=== PATIENT | female | born 1945 | race Caucasian/White ===

== ENCOUNTER 2019-09-13 10:29 | Emergency (ER) | payer BC, OTHER ==
--- OUTSIDE RECORDS SUMMARY | 2019-09-13 10:31 | XMS REPORT | Summary of Care ---
:1945 Author Organization [facility] - Health Address [address] [place] [id number] Care Team Providers Name Role Phone Sae Markham DO [employer] Worker Aneudy Seth Primary Care Provider Encounter Details Date Type Department Care Team Description 04/01/2019 Orders Only [facility] Doctor Unassigned, No 301 [facility] Name [place] [id number] [address] [place] [address] Allergies Active Allergy Reactions Severity Noted Date Comments Codeine Nausea and/or Vomiting 01/08/2019 Meperidine Hcl Nausea and/or Vomiting 01/08/2019 Sulfa (Sulfonamide Unknown - See comments 01/08/2019 Antibiotics) Pentazocine-Naloxone Other - See comments 02/03/2019 N/V, dizziness Tramadol Nausea and/or Vomiting 01/08/2019 documented as of this encounter (statuses as of 04/10/2019) Medications Medication Sig Dispensed Refills Start Date End Date Status citalopram 20 mg tablet 0 01/01/2019 Active losartan-hydrochlorothia Take 1 tablet by 0 Active zide 100-25 mg per mouth daily. tablet atorvastatin 80 mg Take 80 mg by 0 Active tablet mouth at bedtime. ANASTROZOLE Take 1 mg by 0 02/01/2011 Active ORALIndications: hx mouth daily. breast cancwe metoprolol succinate XL Take 25 mg by 0 Active 25 mg 24 hr tablet mouth daily. Levothyroxine 75 mcg Take by mouth. 0 Active capsule omeprazole 40 mg capsule Take 40 mg by 0 Active mouth daily. aspirin 81 mg chewable Take 81 mg by 0 Active tabletIndications: mouth daily. stents in heart pentazocine-naloxone Take 1 tablet by 40 tablet 1 01/21/2019 Active 50-0.5 mg mouth every 4 tabletIndications: (four) hours as Status post total right needed for Pain. knee replacement documented as of this encounter (statuses as of 04/10/2019) Active Problems Problem Noted Date Total knee replacement status 01/20/2019 History of arthritis 01/15/2019 Overview: Added automatically from request for surgery [id number] documented as of this encounter (statuses as of 04/10/2019) Social History Tobacco Use Types Packs/Day Years Used Date Former Smoker Smokeless Tobacco: Never Used Comments: quit 43 years ago Alcohol Use Drinks/Week oz/Week Comments Yes social Sex Assigned at Date Recorded Not on file Job Start Date Occupation Industry Not on file Not on file Not on file Travel History Travel Start Travel End No recent travel history available. documented as of this encounter Last Filed Vital Signs Not on filedocumented in this encounter Plan of Treatment Health Maintenance Due Date Last Done Comments HEPATITIS C (HCV) SCREEN 1945 DTaP,Tdap,and Td Vaccines (1 - Tdap) 1965 MAMMOGRAM 1986 COLONOSCOPY 1996 Zoster Recombinant Vaccine (SHINGRIX) (1 of 2) 1996 LUNG CANCER SCREEN: Recommended for age 55-80 with 30 + 2001 pack year history Medicare Wellness Visit 2011 Osteoporosis Screening 2011 PNEUMOCOCCAL VACCINES 65+ (1 of 2 - PCV13) 2011 INFLUENZA VACCINE 05/04/2019 documented as of this encounter Implants Implanted Type Area Lamp Assembler Device Shelf Model / Identifier Expiration Serial / Lot Date Bone Cement Injector 1x40 High Viscosity Sridhar Ref#[id number] - Sn/A CEMENT Right: Biomet 09/02/2022 [id number] / Implanted: Qty: 1 on 01/20/2019 by Bjorn Hunter MD at [facility] Knee N/A / [id number] Primary Tibial Modular Tray KNEE Right: [employer] 02/27/2021 [id number] / Implanted: Qty: 1 on 01/20/2019 by Bjorn Hunter MD at [facility] Knee N/A / [id number] Bearing Tibial 10 X 63/67 Mm #[id number] - Sn/A Knee Insert Right: [employer] 10/2022 [id number] / Implanted: Qty: 1 on 01/20/2019 by Bjorn Hunter MD at [facility] Knee N/A / [id number] Porous Plasma/Greer Coated -Cf Femoral-Right Knee Insert Right: [employer] [id number] / Implanted: Qty: 1 on 01/20/2019 by Bjorn Hunter MD at [facility] Knee N/A / [id number] Adc Patella 28 X 8 Mm - Sn/A PATELLA Right: [employer] 11/28/2023 [id number] / Implanted: Qty: 1 on 01/20/2019 by Bjorn Hunter MD at [facility] Knee N/A / [id number] Screw Bone 6.5x30mm Lp St [employer] #[id number] - Sn/A SCREW Right: [employer] 10/16 [id number] / Implanted: Qty: 1 on 01/20/2019 by Bjorn Hunter MD at [facility] Knee N/A / [id number] Screw Bone 6.5x30mm Lp St [employer] #[id number] - Sn/A SCREW Right: [employer] 10/16 [id number] / Implanted: Qty: 1 on 01/20/2019 by Bjorn Hunter MD at [facility] Knee N/A / [id number] Screw Bone 6.5x30mm Lp St [employer] #[id number] - Sn/A SCREW Right: [employer] 10/16 [id number] / Implanted: Qty: 1 on 01/20/2019 by Bjorn Hunter MD at [facility] Knee N/A / [id number] Screw Bone 6.5x30mm Lp St [employer] #[id number] - Sn/A SCREW Right: [employer] 10/16 [id number] / Implanted: Qty: 1 on 01/20/2019 by Bjorn Hunter MD at [facility] Knee N/A / [id number] Stem Finned Primary 40mm Biomet #[id number] - Sn/A Stem Right: Biomet 2028 [id number] / Implanted: Qty: 1 on 01/20/2019 by Bjorn Hunter MD at [facility] Knee N/A / [id number] documented as of this encounter Procedures Procedure Name Priority Date/Time Associated Diagnosis Comments REFERRAL- Routine 04/01/2019 12:01 AM CDT REQUEST/RESPONSE documented in this encounter Results Not on filedocumented in this encounter Insurance Payer Benefit Plan / Subscriber ID Effective Dates Phone Address Type Group HUMANA - HUMANA [id number] 2019-Presen Medicare Adv MANAGED MEDICARE t FFS MEDICARE documented as of this encounter
--- OUTSIDE RECORDS SUMMARY | 2019-09-13 10:31 | XMS REPORT ---
:1945 [facility] Address [address] [place] [address] Dr. Butt [address] [place] [id number] Care Team Providers Name Role Phone Unavailable Unavailable Unavailable Problems This patient has no known problems. Allergies, Adverse Reactions, Alerts This patient has no known allergies or adverse reactions. Medications This patient has no known medications.
[2019-09-13 11:00] LABS: Absolute Lymphocytes (CBC) 1.3 K/uL (0.7-4.9); Basophils % 0.7 % (0-1.3); Hematocrit 37.4 % (36.0-45.0); Lymphocytes % 12.9 % (15.3-44.8); MPV 8.6 fL (7.6-11.3); RBC Red Blood Cell Count 4.03 M/uL (3.86-4.86)
[2019-09-13 11:01] LABS: Protime INR 1.11
[2019-09-13 11:18] LABS: ALT/SGPT 17 U/L (12-78); AST/SGOT 9 U/L (15-37); Albumin 3.2 g/dL (3.4-5.0); Alkaline Phosphatase 102 U/L (45-117); BUN Blood Urea Nitrogen 15 mg/dL (7-18); Bicarbonate 28 mmol/L (21-32); Bilirubin Direct 0.2 mg/dL (0-0.2); Glucose Level 123 mg/dL (74-106); Lipase 107 U/L (73-393); Potassium 3.5 mmol/L (3.5-5.1); Sodium Level 140 mmol/L (136-145); Troponin (Emerg Dept Use Only) < 0.02 ng/mL (0.0-0.045)
[2019-09-13 11:34] LABS: Urine Blood NEGATIVE (NEG); Urine Glucose NEGATIVE (NEG); Urine Protein 1+ (NEG); Urine Specific Gravity 1.025 (1.005-1.030)
--- NOTE | 2019-09-13 12:45 | RAD REPORT ---
EXAM DESCRIPTION: CT - Stone Protocol - 09/13/2019 12:23 pm CLINICAL HISTORY: Abdominal pain, left upper quadrant and epigastric pain COMPARISON: None. TECHNIQUE: Axial 5 mm thick images were obtained without oral or IV contrast. The [id number] span s the entirety of the system including uppermost abdomen and lung bases. All CT scans are performed using dose optimization technique as appropriate and may include automated exposure control or mA/KV adjustment according to patient size. FINDINGS: Minimal left pleural effusion is present. There is minimal atelectasis change in the left base. No definitive infiltrate. No pericardial thickening or effusion. No hydronephrosis is present and no obstructing ureteral calculi. A 6 mm nonobstructing calculus pres ent in the posterior mid right kidney. No suspicious renal masses. Isodense masses and pyelonephritis are not excluded on a stone protocol CT scan. No urinary bladder suspicious finding. No significant adrenal finding. Uterus is absent. Pelvic floor laxity is present. No ovarian abnormality. Imaged portions of the liver, spleen and pancreas show no suspicious findings on non-contrast imaging . No gallbladder or biliary tree abnormality identified. No suspicious bowel findings. Small fat only umbilical hernia is present. No mass or bulky lymphadenopathy. No free air, free fluid or inflammatory stranding. No acute bone finding. IMPRESSION: Minimal left pleural effusion and stranding atelectasis in the left base. No definitive infiltrate. No acute finding in the abdomen and pelvis. Nonacute findings detailed in the body of the report. Isodense masses and pyelonephritis are not excluded on stone protocol technique.
--- NOTE | 2019-09-13 12:48 | RAD REPORT ---
EXAM DESCRIPTION: US - Abdomen Exam Limited - 09/13/2019 11:54 am CLINICAL HISTORY: EPIGASTRIC PAIN COMPARISON: No comparisons FINDINGS: No gallstones, sludge or other abnormalities within the gallbladder lumen. There is no wal l thickening or pericholecystic fluid. No common duct stone or biliary tree dilatation identified. IMPRESSION: Normal gallbladder and biliary tree ultrasound.
--- NOTE | 2019-09-13 13:49 | RAD REPORT ---
EXAM DESCRIPTION: RAD - Chest Single View - 09/13/2019 1:27 pm CLINICAL HISTORY: Lower chest pain, upper abdominal pain COMPARISON: November 2014 TECHNIQUE: AP portable chest image was obtained 1321 hours . FINDINGS: No focal lung parenchymal process. Interstitial markings are similar to comparison. Heart and vasculature are normal. No measurable pleural effusion and no pneumothorax. No acute bony abnorma lity seen. No acute aortic findings suspected. IMPRESSION: No acute cardiopulmonary process.
--- NOTE | 2019-09-13 15:15 | ER ---
Nurse's Notes [facility] Name: Clarice Castellano Age: 74 yrs Sex: Female : 1945 Arrival Date: 09/13/2019 Time: 10:31 Bed 6 Private MD: Aneudy Seth Diagnosis: Acute upper respiratory infection, unspecified;Urinary tract infection, site not specified Presentation: 09/13 10:40 Presenting complaint: Patient states: LUQ and epigastric pain that radiates towards ss back that began at lunch time yesterday. Pt states that she took a SL Nitro prior to arrival and states it did not change her symptoms. Transition of care: patient was not received from another setting of care. Onset of symptoms was September 12, 2019. Risk Assessment: Do you want to hurt yourself or someone else? Patient reports no desire to harm self or others. Initial Sepsis Screen: Does the patient meet any 2 criteria? No. Patient's initial sepsis screen is negative. Does the patient have a suspected source of infection? No. Patient's initial sepsis screen is negative. Care prior to arrival: None. 10:40 Method Of Arrival: Ambulatory ss 10:40 Acuity: CARL 3 ss Historical: - Allergies: 10:43 Sulfa (Sulfonamide Antibiotics); ss 10:43 Codeine; ss 10:43 tramadol; ss 10:43 Demerol; ss - Home Meds: 11:19 losartan-hydrochlorothiazide 100-25 mg oral tab 1 tab once daily [Active]; citalopram aj1 40 mg tab 1 tab once daily [Active]; atorvastatin 80 mg oral tab 1 tab once daily [Active]; anastrozole 1 mg oral tab 1 tab once daily [Active]; aspirin 81 mg Oral chew 1 tab once daily [Active]; Vitamin D3 5,000 unit oral tab [Active]; Calcium Citrate Oral [Active]; metoprolol tartrate 25 mg Oral tab [Active]; levothyroxine 75 mcg tab 1 tab once daily [Active]; simvastatin 20 mg Oral tab 1 tab once daily [Active]; Vitamin C 1,000 mg Oral tab [Active]; vitamin E 400 unit Oral cap [Active]; omeprazole 40 mg Oral cpDR 1 cap once daily [Active]; multivitamin oral cap daily [Active]; - PMHx: 10:47 High Cholesterol; Hypertension; ss - PSHx: 10:47 Knee surgery; cardiac stent; ss - Immunization history:: Adult Immunizations up to date. - Social history:: Smoking status: Patient/guardian denies using tobacco. - Ebola Screening: : Patient denies exposure to infectious person Patient denies travel to an Ebola-affected area in the 21 days before illness onset. Screenin:45 Abuse screen: Denies threats or abuse. Nutritional screening: No deficits noted. tw2 Tuberculosis screening: No symptoms or risk factors identified. Fall Risk Secondary diagnosis (15 points) impaired mobility. Assessment: 11:33 General: Appears in no apparent distress. comfortable, Behavior is calm, cooperative, aj1 appropriate for age. Pain: Complains of pain in epigastric area Pain radiates to back and chest Quality of pain is described as aching, Patient reports that her pain is tolerable at this time as long as she doesn't take too deep of a breath. Neuro: Level of Consciousness is awake, alert, obeys commands, Oriented to person, place, time, situation. Cardiovascular: Heart tones S1 S2 present Patient's skin is warm and dry. Respiratory: Airway is patent Respiratory effort is even, unlabored, Respiratory pattern is regular, symmetrical, Breath sounds are clear bilaterally. GI: Abdomen is distended, Bowel sounds present X 4 quads. Abd is soft X 4 quads Abdomen is tender to palpation in right upper quadrant. : No signs and/or symptoms were reported regarding the genitourinary system. EENT: No signs and/or symptoms were reported regarding the EENT system. Derm: No signs and/or symptoms reported regarding the dermatologic system. Skin is pink, warm \T\ dry. normal. Musculoskeletal: No signs and/or symptoms reported regarding the musculoskeletal system. Circulation, motion, and sensation intact. 11:36 Reassessment: Ultrasound at bedside. aj1 12:35 Reassessment: Patient appears in no apparent distress at this time. Patient and/or tw2 family updated on plan of care and expected duration. Pain level reassessed. Patient is alert, oriented x 3, equal unlabored respirations, skin warm/dry/pink. 13:35 Reassessment: Patient appears in no apparent distress at this time. Patient and/or tw2 family updated on plan of care and expected duration. Pain level reassessed. Patient is alert, oriented x 3, equal unlabored respirations, skin warm/dry/pink. 14:01 Reassessment: provider at bedside at this time. tw2 15:22 Reassessment: Patient appears in no apparent distress at this time. Patient and/or tw2 family updated on plan of care and expected duration. Pain level reassessed. Patient is alert, oriented x 3, equal unlabored respirations, skin warm/dry/pink. Vital Signs: 10:40 BP 102 / 65; Pulse 68; Resp 16; Temp 99.2(TE); Pulse Ox 96% on R/A; Weight 81.19 kg; ss Height 5 ft. 2 in. (157.48 cm); Pain 5/10; 11:34 BP 98 / 55; Pulse 57; Resp 17; Pulse Ox 93% on R/A; tw2 12:35 BP 104 / 52; Pulse 65; Resp 17; Pulse Ox 93% on R/A; tw2 13:35 BP 103 / 53; Pulse 62; Resp 17; Pulse Ox 97% on R/A; tw2 14:37 BP 99 / 55; Pulse 62; Resp 17; Pulse Ox 95% on R/A; tw2 15:22 BP 118 / 66; Pulse 68; Resp 17; Pulse Ox 95% on R/A; tw2 10:40 Body Mass Index 32.74 (81.19 kg, 157.48 cm) ED Course: 10:31 Patient arrived in ED. as 10:31 Aneudy Seth MD is Private Physician. as 10:32 [facility] Jose [facility] 10:32 Mark Reich MD is Attending Physician. [facility] 10:32 Bed in low position. Call light in reach. monitoring tech on. Pulse ox on. NIBP on. tw2 10:40 Arm band placed on right wrist. ss 10:40 Inserted saline lock: 20 gauge in left antecubital area, using aseptic technique. Blood sv collected. Flushed left antecubital with 5 ml normal saline. 10:41 Mattie Lobato, LAI is Primary Nurse. sv 10:42 Triage completed. ss 10:57 Report given to Nae HOYT. sv 11:33 No provider procedures requiring assistance completed. aj1 11:54 Ultrasound completed. Patient tolerated well. sg3 11:54 US Abdomen Limited In Process Unspecified. EDMS 12:16 Nae Zavala, RN is Primary Nurse. aj1 12:23 CT Stone Protocol In Process Unspecified. EDMS 13:28 Chest Single View XRAY In Process Unspecified. EDMS 15:14 Aneudy Seth MD is Referral Physician. m 15:21 IV discontinued, intact, bleeding controlled, No redness/swelling at site. Pressure tw2 dressing applied. Administered Medications: No medications were administered Outcome: 15:14 Discharge ordered by . jmm 15:21 Discharged to home ambulatory, with family. tw2 15:21 Condition: stable 15:21 Discharge instructions given to patient, family, Instructed on medication usage, Demonstrated understanding of instructions, follow-up care, medications, Prescriptions given X 1. 15:22 Patient left the ED. tw2 Signatures: Dispatcher [employer] EDMS Nae Zavala, RN RN aj1 Mattie Lobato RN RN Tommy Soto PA PA jmm Martinez, Amelia as Smirch, Shelby, RN RN ss Wise, Tara, RN RN tw2 Isamar Segovia 3
--- NOTE | 2019-09-13 15:16 | EDPHYS ---
Physician Documentation [facility] Name: Clarice Castellano Age: 74 yrs Sex: Female : 1945 Arrival Date: 09/13/2019 Time: 10:31 Bed 6 Private MD: Aneudy Seth ED Physician Mark Reich HPI: 09/13 10:35 This 74 yrs old Female presents to ER via Ambulatory with complaints of jmm Epigastric Pain, Back Pain, Flank Pain. 10:35 The patient presents with abdominal pain in the epigastric area. Onset: The jmm symptoms/episode began/occurred gradually, 1 day(s) ago. The symptoms radiate to right back, the left flank, chest. Associated signs and symptoms: Pertinent negatives: diarrhea, vomiting. The symptoms are described as achy. Modifying factors: The symptoms are alleviated by nothing, the symptoms are aggravated by nothing. This is a 74 year old female with a history of hlp, CAD, HTN, that presents to the ED with complaints of epigastric pain which radiates to the left flank, back, chest. Denies vomiting diarrhea. Patient still has gallbladder. . Historical: - Allergies: 10:43 Sulfa (Sulfonamide Antibiotics); ss 10:43 Codeine; ss 10:43 tramadol; ss 10:43 Demerol; ss - Home Meds: 11:19 losartan-hydrochlorothiazide 100-25 mg oral tab 1 tab once daily [Active]; citalopram aj1 40 mg tab 1 tab once daily [Active]; atorvastatin 80 mg oral tab 1 tab once daily [Active]; anastrozole 1 mg oral tab 1 tab once daily [Active]; aspirin 81 mg Oral chew 1 tab once daily [Active]; Vitamin D3 5,000 unit oral tab [Active]; Calcium Citrate Oral [Active]; metoprolol tartrate 25 mg Oral tab [Active]; levothyroxine 75 mcg tab 1 tab once daily [Active]; simvastatin 20 mg Oral tab 1 tab once daily [Active]; Vitamin C 1,000 mg Oral tab [Active]; vitamin E 400 unit Oral cap [Active]; omeprazole 40 mg Oral cpDR 1 cap once daily [Active]; multivitamin oral cap daily [Active]; - PMHx: 10:47 High Cholesterol; Hypertension; ss - PSHx: 10:47 Knee surgery; cardiac stent; ss - Immunization history:: Adult Immunizations up to date. - Social history:: Smoking status: Patient/guardian denies using tobacco. - Ebola Screening: : Patient denies exposure to infectious person Patient denies travel to an Ebola-affected area in the 21 days before illness onset. ROS: 10:35 Constitutional: Negative for fever, chills, and weight loss. jmm 10:35 Respiratory: Negative for shortness of breath, cough, wheezing, and pleuritic chest pain. 10:35 Cardiovascular: Positive for chest pain. 10:35 Abdomen/GI: Positive for abdominal pain. 10:35 Back: Positive for radiated pain. 10:35 All other systems are negative. Exam: 10:35 Constitutional: This is a well developed, well nourished patient who is awake, alert, jmm and in no acute distress. Head/Face: atraumatic. Eyes: EOMI, no conjunctival erythema appreciated ENT: Moist Mucus Membranes Neck: Trachea midline, Supple Chest/axilla: Normal chest wall appearance and motion. Cardiovascular: Regular rate and rhythm. No edema appreciated Respiratory: Normal respirations, no respiratory distress appreciated 10:35 Back: Normal ROM Skin: General appearance color normal MS/ Extremity: Moves all extremities, no obvious deformities appreciated, no edema noted to the lower extremities Neuro: Awake and alert, normal gait Psych: Behavior is normal, Mood is normal, Patient is cooperative and pleasant 10:35 Abdomen/GI: Inspection: abdomen appears normal, Bowel sounds: normal, Palpation: soft, mild abdominal tenderness, in the right upper quadrant. Vital Signs: 10:40 BP 102 / 65; Pulse 68; Resp 16; Temp 99.2(TE); Pulse Ox 96% on R/A; Weight 81.19 kg; Height 5 ft. 2 in. (157.48 cm); Pain 5/10; 11:34 BP 98 / 55; Pulse 57; Resp 17; Pulse Ox 93% on R/A; tw2 12:35 BP 104 / 52; Pulse 65; Resp 17; Pulse Ox 93% on R/A; tw2 13:35 BP 103 / 53; Pulse 62; Resp 17; Pulse Ox 97% on R/A; tw2 14:37 BP 99 / 55; Pulse 62; Resp 17; Pulse Ox 95% on R/A; tw2 15:22 BP 118 / 66; Pulse 68; Resp 17; Pulse Ox 95% on R/A; tw2 10:40 Body Mass Index 32.74 (81.19 kg, 157.48 cm) ss MDM: 10:42 Patient medically screened. [facility] 15:12 Data reviewed: vital signs, nurses notes. Counseling: I had a detailed discussion with bryon the patient and/or guardian regarding: the historical points, exam findings, and any diagnostic results supporting the discharge/admit diagnosis, lab results, radiology results, the need for outpatient follow up, to return to the emergency department if symptoms worsen or persist or if there are any questions or concerns that arise at home. ED course: Patient states on deep inhalation she has discomfort in her left side with a cough. Symptoms appear consistent with an infectious process opposed to ACS of PE. Patient will be treated with ABX and otherwise given strict return precautions. Patient understood and agrees with the plan of care. . 09/13 10:35 Order name: Basic Metabolic Panel; Complete Time: 11:19 [facility] 09/13 10:35 Order name: CBC with Diff; Complete Time: 11:19 [facility] 09/13 10:35 Order name: Creatinine for Radiology; Complete Time: 11:32 [facility] 09/13 10:35 Order name: Hepatic Function; Complete Time: 11:19 [facility] 09/13 10:35 Order name: Lipase; Complete Time: 11:19 [facility] 09/13 10:35 Order name: Troponin (emerg Dept Use Only); Complete Time: 11:19 [facility] 09/13 10:35 Order name: IV Saline Lock; Complete Time: 11:22 [facility] 09/13 10:35 Order name: Labs collected and sent; Complete Time: 11:22 [facility] 09/13 10:45 Order name: PT-INR; Complete Time: 11:19 [facility] 09/13 10:45 Order name: US Abdomen Limited; Complete Time: 12:49 [facility] 09/13 11:05 Order name: Urine Dipstick--Ancillary (enter results); Complete Time: 11:38 sc 09/13 12:01 Order name: CT Stone Protocol; Complete Time: 12:49 [facility] 09/13 12:54 Order name: Chest Single View XRAY; Complete Time: 13:51 [facility] 09/13 14:06 Order name: Troponin (emerg Dept Use Only): draw at 1430; Complete Time: 15:12 [facility] 09/13 10:35 Order name: EKG - Nurse/Tech; Complete Time: 10:41 [facility] 09/13 10:35 Order name: Urine Dipstick-Ancillary (obtain specimen); Complete Time: 11:22 [facility] Administered Medications: No medications were administered Disposition: 15:35 Co-signature as Attending Physician, Mark Reich MD. rn Disposition: 09/13/19 15:14 Discharged to Home. Impression: Acute upper respiratory infection, unspecified, Urinary tract infection, site not specified. - Condition is Stable. - Discharge Instructions: Upper Respiratory Infection, Pediatric, Urinary Tract Infection, Adult. - Prescriptions for cefdinir 300 mg Oral capsule - take 1 capsule by ORAL route every 12 hours for 10 days; 20 capsule. - Medication Reconciliation Form, Thank You Letter, Antibiotic Education, Prescription Opioid Use form. - Follow up: Aneudy Seth MD; When: 2 - 3 days; Reason: Recheck today's complaints, Continuance of care, Re-evaluation by your physician. Signatures: Dispatcher [employer] EDNae Alonso RN RN aj1 Tommy Jose PA PA [facility] Mark Reich MD MD rn Smirch, Shelby, RN RN ss Wise, Tara, RN RN tw2 Corrections: (The following items were deleted from the chart) 15:22 15:14 09/13/2019 15:14 Discharged to Home. Impression: Acute upper respiratory tw2 infection, unspecified; Urinary tract infection, site not specified. Condition is Stable. Forms are Medication Reconciliation Form, Thank You Letter, Antibiotic Education, Prescription Opioid Use. Follow up: Aneudy Seth; When: 2 - 3 days; Reason: Recheck today's complaints, Continuance of care, Re-evaluation by your physician. [facility]
[2019-09-13 15:54] VITALS: TEMP 99.2
[2019-09-13 16:01] VITALS: O2SAT 95
[2019-09-13 16:02] VITALS: BP 118/66
--- NOTE | 2019-09-15 05:31 | EKG ---
Test Date: 2019-09-13 Test Time: 10:41:29 Information Technology Architect: SEB MEASUREMENT RESULTS: Intervals: Rate: 65 MD: 140 QRSD: 64 QT: 424 QTc: 440 [place]: P: 36 MD: 140 QRS: 36 T: 30 INTERPRETIVE STATEMENTS: Normal sinus rhythm normal ECG Compared to ECG 08/24/2017 07:23:54 Sinus bradycardia no longer present T-wave abnormality no longer present Possible ischemia no longer present Electronically Signed On 09-15-19 05:30:42 MENTAL HEALTH ASSOCIATE by Isaac Mejia
== END 2019-09-13 15:22 | disposition home or self-care (01) ==
LOC: ER 10:29
DX: N39.0 Urinary tract infection, site not specified (principal); J06.9 Acute upper respiratory infection, unspecified; I10 Essential (primary) hypertension; E78.00 Pure hypercholesterolemia, unspecified; Z79.82 Long term (current) use of aspirin; Z88.2 Allergy status to sulfonamides; Z88.5 Allergy status to narcotic agent
CPT/HCPCS: 36415; 71045; 74176; 76377; 76705; 80048; 80076; 81003; 83690; 84484; 85025; 85610; 93005; 99284

== ENCOUNTER 2020-05-14 14:22 | Emergency (ER) | payer OTHER ==
--- OUTSIDE RECORDS SUMMARY | 2020-05-14 14:24 | XMS REPORT | Continuity of Care Document ---
:1945 Author Organization [facility] t Address [address] [place] [address] Care Team Providers Name Role Phone Ca Hunter MD Attending Clinician Problems This patient has no known problems. Allergies, Adverse Reactions, Alerts This patient has no known allergies or adverse reactions. Medications This patient has no known medications. Procedures This patient has no known procedures. Encounters Start End Encounter Admission Attending Care Care Encounter Source Date/Time Date/Time Type Type Clinicians Facility Department ID 2020-01-15 2020-02-16 Office Elsa [facility] [id number] 12:49:45 16:40:10 Visit [facility] [id number] Surgical [id number] Specialti [id number] [address] [place] Results This patient has no known results.
[2020-05-14 15:19] LABS: Absolute Lymphocytes (CBC) 1.2 K/uL (0.7-4.9); Basophils % 0.3 % (0-1.3); Hematocrit 38.4 % (36.0-45.0); Lymphocytes % 11.9 % (15.3-44.8); RBC Red Blood Cell Count 4.06 M/uL (3.86-4.86)
[2020-05-14 15:45] LABS: Albumin 3.2 g/dL (3.4-5.0); Bilirubin Direct 0.2 mg/dL (0-0.2); Bilirubin Total 0.7 mg/dL (0.2-1.0); Potassium 3.9 mmol/L (3.5-5.1); Protein, Total 7.2 g/dL (6.4-8.2)
[2020-05-14 15:53] LABS: Urine Bacteria <20 /HPF (<20); Urine Culture Reflex Order NOT NEEDED; Urine Mucus 2+ /HPF (NONE SEEN); Urine RBC TNTC /HPF (NONE SEEN); Urine Urothelial Cells <5 /HPF (NONE SEEN)
[2020-05-14 15:54] LABS: Urine Blood 3+ (NEG); Urine Glucose NEGATIVE (NEG); Urine Protein TRACE (NEG)
[2020-05-14] MEDS ORDERED: KETOROLAC 30 MG/ML INJ ONE (16:10)
--- NOTE | 2020-05-14 16:41 | RAD REPORT ---
EXAM DESCRIPTION: CT - Stone Protocol - 05/14/2020 4:25 pm CLINICAL HISTORY: Abdominal pain. Hematuria COMPARISON: September 2019 TECHNIQUE: Computed axial tomography of the abdomen pelvis was obtained without oral or IV contrast. Lack of IV and oral contrast limits evaluation of solid organs, bowel, and vessels. Coronal reformat aiden images were obtained and reviewed. All CT scans are performed using dose optimization technique as appropriate and may include automated exposure control or mA/KV adjustment according to patient size. FINDINGS: Small right renal calculi. Moderate right hydronephrosis. Right perirenal stranding. 7 mil limeter calculus proximal right ureter. The liver, spleen, pancreas and adrenals appear grossly normal There is no evidence of diverticulitis. Small umbilical hernia contains fat. Diastases rectus abdomin is muscles 5.4 centimeters. Moderate right posterolateral partially calcified disc herniation L5-S1. Small hiatal hernia IMPRESSION: A 7 millimeter calculus proximal right ureter resulting in moderate right hydronephrosis
[2020-05-14] MEDS ORDERED: FENTANYL CITR 100 MCG/2 ML ONE (17:01)
[2020-05-14] MEDS ORDERED: MAGNESIUM SULFATE 1 gm IVPB 1 GM/100 ML BAG IV ONE (17:14)
[2020-05-14] MEDS ORDERED: CEFTRIAXONE/SWI 1gm 1 GM/10 ML SYR ONE (17:14)
[2020-05-14] MEDS ORDERED: TAMSULOSIN 0.4 MG SR CAP ONE (17:14)
[2020-05-14] MEDS ORDERED: ONDANSETRON 4 MG/2 ML VIAL ONE (17:14)
--- NOTE | 2020-05-14 18:12 | EDPHYS ---
Physician Documentation [facility] Name: Clarice Castellano Age: 75 yrs Sex: Female : 1945 Arrival Date: 05/14/2020 Time: 14:27 Bed 7 Private MD: Aneudy Seth ED Physician Liss Banegas HPI: 05/14 15:00 This 75 yrs old Female presents to ER via Ambulatory with complaints of cp Urinary Problem, Abdominal Pain. Historical: - Allergies: 14:34 Codeine; jd3 14:34 Demerol; jd3 14:34 Sulfa (Sulfonamide Antibiotics); jd3 14:34 tramadol; jd3 - Home Meds: 15:27 anastrozole 1 mg Oral tab 1 tab once daily [Active]; aspirin 81 mg Oral chew 1 tab once hb daily [Active]; atorvastatin 80 mg Oral tab 1 tab once daily [Active]; simvastatin 20 mg Oral tab 1 tab once daily [Active]; citalopram 40 mg tab 1 tab once daily [Active]; losartan-hydrochlorothiazide 100-25 mg Oral tab 1 tab once daily [Active]; levothyroxine 75 mcg tab 1 tab once daily [Active]; metoprolol tartrate 25 mg Oral tab [Active]; Calcium Citrate Oral [Active]; Vitamin D3 5,000 unit Oral tab [Active]; vitamin E 400 unit Oral cap [Active]; Vitamin C 1,000 mg Oral tab [Active]; omeprazole 40 mg Oral cpDR 1 cap once daily [Active]; multivitamin Oral cap daily [Active]; ibandronate 150 mg oral tab 1 tab once moly [Active]; - PMHx: 14:34 High Cholesterol; Hypertension; jd3 15:27 Osteoporosis; hb - PSHx: 14:34 cardiac stent; Knee surgery; jd3 15:27 Cataract - bilateral; Carpal Tunnel Repair; Knee - Right; hb - Immunization history:: Adult Immunizations up to date. - Social history:: Smoking status: Patient/guardian denies using tobacco, but has a distant history of tobacco abuse. ROS: 15:05 : Positive for flank pain, hematuria. cp 15:05 Constitutional: Negative for body aches, chills, fever, poor PO intake. cp 15:05 Cardiovascular: Negative for chest pain. 15:05 Respiratory: Negative for cough, shortness of breath, wheezing. 15:05 Abdomen/GI: Positive for abdominal pain, Negative for vomiting, diarrhea, constipation. 15:05 Back: Positive for flank pain, on the right. 15:05 Neuro: Negative for weakness. 15:05 All other systems are negative. Exam: 15:10 Constitutional: The patient appears in no acute distress, alert, awake, non-toxic, well cp developed, well nourished. 15:10 Head/Face: Normocephalic, atraumatic. cp 15:10 Eyes: Periorbital structures: appear normal, Conjunctiva: normal, no exudate, no injection, Sclera: no appreciated abnormality, Lids and lashes: appear normal, bilaterally. 15:10 ENT: External ear(s): are unremarkable, Nose: is normal, Mouth: Lips: moist, Oral mucosa: moist, Posterior pharynx: Airway: no evidence of obstruction, patent. 15:10 Chest/axilla: Inspection: normal, Palpation: is normal, no crepitus, no tenderness. 15:10 Cardiovascular: Rate: normal. 15:10 Respiratory: the patient does not display signs of respiratory distress, Respirations: normal, no use of accessory muscles, labored breathing, is not present, Breath sounds: are clear throughout, no decreased breath sounds, no stridor, no wheezing. 15:10 Abdomen/GI: Inspection: abdomen appears normal, Bowel sounds: active, all quadrants, Palpation: soft, in all quadrants, mild abdominal tenderness, in the suprapubic area, posterior aspect of right lateral abdomen, anterior aspect of right lateral abdomen and right lower quadrant, rebound tenderness, is not appreciated, voluntary guarding, is not appreciated, involuntary guarding, is not appreciated. 15:10 Skin: no rash present. Vital Signs: 14:34 BP 135 / 70; Pulse 66; Resp 17 S; Temp 98.2(TE); Pulse Ox 98% on R/A; Weight 83.91 kg jd3 (R); Height 5 ft. 1 in. (154.94 cm) (R); Pain 1/10; 15:30 BP 132 / 72; Pulse 64; Resp 15; Pulse Ox 99% ; hb 17:00 BP 128 / 68; Pulse 66; Resp 16; Pulse Ox 100% ; hb 17:49 BP 108 / 64; Pulse 64; Resp 16; Pulse Ox 99% on R/A; hb 14:34 Body Mass Index 34.96 (83.91 kg, 154.94 cm) jd3 MDM: 14:47 Patient medically screened. cp 18:08 ED course: VSS. Pain and nausea markedly improved. Patient requesting discharge to home cp for continued monitoring and will contact urology next week for follow-up. Patient will return to ED worsening symptoms. 18:10 Data reviewed: vital signs, nurses notes, radiologic studies, CT scan, and as a result, cp I will discharge patient. 18:10 Response to treatment: the patient's symptoms have markedly improved after treatment. cp Special discussion: Based on the patient's history, exam and DX evaluation, there is no indication for emergent intervention or inpatient [place]. It is understood by the patient/guardian that if the SXs persist or worsen they need to return immediately for re-evaluation. 05/14 14:52 Order name: Urine Microscopic Only; Complete Time: 15:55 05/14 15:55 Interpretation: Normal except: URBC TNTC. 05/14 14:53 Order name: Basic Metabolic Panel; Complete Time: 15:55 05/14 15:55 Interpretation: Normal except: GLUC 107; BUN 29; GFR 47. 05/14 14:53 Order name: CBC with Diff; Complete Time: 15:55 05/14 15:56 Interpretation: Normal except: SELVIN% 78.0; LYM% 11.9. 05/14 14:53 Order name: Hepatic Function; Complete Time: 15:55 05/14 15:56 Interpretation: Normal except: AST 12; ALB 3.2; GLOB 4.0; A/G 0.8. 05/14 14:53 Order name: Lipase; Complete Time: 15:55 05/14 15:38 Order name: Urine Dipstick--Ancillary (enter results); Complete Time: 15:55 05/14 15:56 Interpretation: Normal except: UBLD 3+; UESTR TRACE. 05/14 14:53 Order name: CT Stone Protocol; Complete Time: 16:48 05/14 14:52 Order name: Urine Dipstick-Ancillary (obtain specimen); Complete Time: 15:43 05/14 14:53 Order name: IV Saline Lock; Complete Time: 15:43 05/14 14:53 Order name: Labs collected and sent; Complete Time: 15:43 cp 05/14 17:12 Order name: PO challenge; Complete Time: 17:17 cp Administered Medications: 16:02 Drug: TORadol - Ketorolac 15 mg Route: IVP; Site: left antecubital; hb 16:30 Follow up: Response: No adverse reaction hb 16:56 Drug: fentaNYL (PF) 50 mcg Route: IVP; Site: left antecubital; hb 17:17 Follow up: Response: No adverse reaction hb 17:01 CANCELLED (Physician Discretion): Magnesium Sulfate 1 grams IVPB once over 20 hrs cp 17:01 Not Given (Physician Discretion): Flomax 0.4 mg PO once cp 17:09 Drug: Magnesium Sulfate 1 grams Route: IVPB; Infused Over: 20 mins; Site: left hb antecubital; 17:30 Follow up: Response: No adverse reaction; IV Status: Completed infusion; IV Intake: 50mlhb 17:10 Drug: Rocephin 1 grams Route: IV; Rate: calculated rate; Site: left antecubital; hb 17:11 Follow up: IV Status: Completed infusion; IV Intake: 10ml hb 17:45 Follow up: Response: No adverse reaction hb 17:10 Drug: Zofran (Ondansetron) 4 mg Route: IVP; Site: left antecubital; hb 17:45 Follow up: Response: No adverse reaction hb 17:10 Drug: Flomax 0.4 mg Route: PO; hb 17:50 Follow up: Response: No adverse reaction hb Disposition: 18:19 Chart complete. cp Disposition: 05/14/20 18:11 Discharged to Home. Impression: Calculus of kidney and ureter - right. - Condition is Stable. - Discharge Instructions: Kidney Stones. - Prescriptions for Zofran 4 mg Oral Tablet - take 1 tablet by ORAL route every 12 hours As needed; 20 tablet. Flomax 0.4 mg Oral Capsule, Sust. Release 24 hr - take 1 capsule by ORAL route once daily 1/2 hour following the same meal each day; 30 capsule. Cipro 250 mg Oral Tablet - take 1 tablet by ORAL route every 12 hours for 7 days; 14 tablet. - Medication Reconciliation Form, Thank You Letter, Antibiotic Education, Prescription Opioid Use form. - Follow up: Pato Ruiz MD; When: 2 - 3 days; Reason: right kidney and ureter stone. - Problem is new. - Symptoms have improved. Signatures: Dispatcher [employer] EDMS Sergio Carrneo PA PA cp Nelli Crystal RN RN Vadim Ramirez RN RN jd3 Corrections: (The following items were deleted from the chart) 17:01 16:50 Magnesium Sulfate 1 grams IVPB once over 20 hrs ordered. cp cp 17:01 16:56 Magnesium Sulfate 1 grams IVPB once over 20 hrs ordered. hb cp 18:37 18:11 05/14/2020 18:11 Discharged to Home. Impression: Calculus of kidney and ureter - hb right. Condition is Stable. Forms are Medication Reconciliation Form, Thank You Letter, Antibiotic Education, Prescription Opioid Use. Follow up: Pato Ruiz; When: 2 - 3 days; Reason: right kidney and ureter stone. Problem is new. Symptoms have improved. cp
--- NOTE | 2020-05-14 18:12 | ER ---
Nurse's Notes [facility] Name: Clarice Castellano Age: 75 yrs Sex: Female : 1945 Arrival Date: 05/14/2020 Time: 14:27 Bed 7 Private MD: Aneudy Seth Diagnosis: Calculus of kidney and ureter-right Presentation: 05/14 14:32 Chief complaint: Patient states: "I am having blood in my urine. I also have a this jd3 pain that comes across under my stomach.". Coronavirus screen: At this time, the client does not indicate any symptoms associated with coronavirus-19. Ebola Screen: Patient negative for fever greater than or equal to 101.5 degrees Fahrenheit, and additional compatible Ebola Virus Disease symptoms. Initial Sepsis Screen: Does the patient meet any 2 criteria? No. Patient's initial sepsis screen is negative. Does the patient have a suspected source of infection? No. Patient's initial sepsis screen is negative. Risk Assessment: Do you want to hurt yourself or someone else? Patient reports no desire to harm self or others. Onset of symptoms was May 14, 2020. 14:32 Method Of Arrival: Ambulatory jd3 14:32 Acuity: CARL 3 jd3 Historical: - Allergies: 14:34 Codeine; jd3 14:34 Demerol; jd3 14:34 Sulfa (Sulfonamide Antibiotics); jd3 14:34 tramadol; jd3 - Home Meds: 15:27 anastrozole 1 mg Oral tab 1 tab once daily [Active]; aspirin 81 mg Oral chew 1 tab once hb daily [Active]; atorvastatin 80 mg Oral tab 1 tab once daily [Active]; simvastatin 20 mg Oral tab 1 tab once daily [Active]; citalopram 40 mg tab 1 tab once daily [Active]; losartan-hydrochlorothiazide 100-25 mg Oral tab 1 tab once daily [Active]; levothyroxine 75 mcg tab 1 tab once daily [Active]; metoprolol tartrate 25 mg Oral tab [Active]; Calcium Citrate Oral [Active]; Vitamin D3 5,000 unit Oral tab [Active]; vitamin E 400 unit Oral cap [Active]; Vitamin C 1,000 mg Oral tab [Active]; omeprazole 40 mg Oral cpDR 1 cap once daily [Active]; multivitamin Oral cap daily [Active]; ibandronate 150 mg oral tab 1 tab once moly [Active]; - PMHx: 14:34 High Cholesterol; Hypertension; jd3 15:27 Osteoporosis; hb - PSHx: 14:34 cardiac stent; Knee surgery; jd3 15:27 Cataract - bilateral; Carpal Tunnel Repair; Knee - Right; hb - Immunization history:: Adult Immunizations up to date. - Social history:: Smoking status: Patient/guardian denies using tobacco, but has a distant history of tobacco abuse. Screenin:19 Abuse screen: Denies threats or abuse. Denies injuries from another. Nutritional hb screening: No deficits noted. Tuberculosis screening: No symptoms or risk factors identified. Fall Risk None identified. Assessment: 15:00 General: Appears in no apparent distress. Behavior is calm, cooperative. Pain: Pain hb currently is 3 out of 10 on a pain scale. Neuro: Level of Consciousness is awake, alert, obeys commands, Oriented to person, place, time, situation. Cardiovascular: Capillary refill < 3 seconds Patient's skin is warm and dry. Respiratory: Respiratory effort is even, unlabored, Respiratory pattern is regular, symmetrical. GI: Abdomen is non-distended, Reports lower abdominal pain, flank pain. : Reports flank pain, blood in urine. EENT: No signs and/or symptoms were reported regarding the EENT system. Derm: Skin is pink, warm \\T\\ dry. Musculoskeletal: No signs and/or symptoms reported regarding the musculoskeletal system. 16:03 Reassessment: Pt c/o pain 7/10. NOAH Hill notified, Toradol administered as ordered. hb VSS, NAD. Awaiting CT at this time. 17:00 Reassessment: Patient appears in no apparent distress at this time. Patient and/or hb family updated on plan of care and expected duration. Pain level reassessed. Patient is alert, oriented x 3, equal unlabored respirations, skin warm/dry/pink. 17:12 Reassessment: Pt provided sprite, water, and saltine crackers as requested. hb 17:48 Reassessment: Patient appears in no apparent distress at this time. Patient and/or hb family updated on plan of care and expected duration. Pain level reassessed. Patient is alert, oriented x 3, equal unlabored respirations, skin warm/dry/pink. General: Appears. Vital Signs: 14:34 BP 135 / 70; Pulse 66; Resp 17 S; Temp 98.2(TE); Pulse Ox 98% on R/A; Weight 83.91 kg jd3 (R); Height 5 ft. 1 in. (154.94 cm) (R); Pain 1/10; 15:30 BP 132 / 72; Pulse 64; Resp 15; Pulse Ox 99% ; hb 17:00 BP 128 / 68; Pulse 66; Resp 16; Pulse Ox 100% ; hb 17:49 BP 108 / 64; Pulse 64; Resp 16; Pulse Ox 99% on R/A; hb 14:34 Body Mass Index 34.96 (83.91 kg, 154.94 cm) jd3 ED Course: 14:27 Patient arrived in ED. mr 14:27 Aneudy Seth MD is Private Physician. mr 14:33 Triage completed. jd3 14:35 Arm band placed on. jd3 14:42 Sergio Carreno PA is PHCP. cp 14:42 Liss Banegas MD is Attending Physician. cp 14:42 Nelli Crystal, LAI is Primary Nurse. hb 15:04 Inserted saline lock: 20 gauge in left antecubital area, using aseptic technique. Blood hb collected. 15:19 Patient has correct armband on for positive identification. Bed in low position. Call hb light in reach. Side rails up X 1. 16:07 Pulse ox on. NIBP on. mh5 16:25 CT Stone Protocol In Process Unspecified. EDMS 18:10 Pato Ruiz MD is Referral Physician. cp 18:37 No provider procedures requiring assistance completed. IV discontinued, intact, hb bleeding controlled, No redness/swelling at site. Administered Medications: 16:02 Drug: TORadol - Ketorolac 15 mg Route: IVP; Site: left antecubital; hb 16:30 Follow up: Response: No adverse reaction hb 16:56 Drug: fentaNYL (PF) 50 mcg Route: IVP; Site: left antecubital; hb 17:17 Follow up: Response: No adverse reaction hb 17:01 CANCELLED (Physician Discretion): Magnesium Sulfate 1 grams IVPB once over 20 hrs cp 17:01 Not Given (Physician Discretion): Flomax 0.4 mg PO once cp 17:09 Drug: Magnesium Sulfate 1 grams Route: IVPB; Infused Over: 20 mins; Site: left hb antecubital; 17:30 Follow up: Response: No adverse reaction; IV Status: Completed infusion; IV Intake: 50mlhb 17:10 Drug: Rocephin 1 grams Route: IV; Rate: calculated rate; Site: left antecubital; hb 17:11 Follow up: IV Status: Completed infusion; IV Intake: 10ml hb 17:45 Follow up: Response: No adverse reaction hb 17:10 Drug: Zofran (Ondansetron) 4 mg Route: IVP; Site: left antecubital; hb 17:45 Follow up: Response: No adverse reaction hb 17:10 Drug: Flomax 0.4 mg Route: PO; hb 17:50 Follow up: Response: No adverse reaction hb Intake: 17:11 IV: 10ml; Total: 10ml. hb 17:30 IV: 50ml; Total: 60ml. hb Outcome: 18:11 Discharge ordered by MD. cp 18:37 Discharged to home ambulatory. hb 18:37 Condition: stable 18:37 Discharge instructions given to patient, Instructed on discharge instructions, follow up and referral plans. medication usage, Demonstrated understanding of instructions, follow-up care, medications, Prescriptions given X 3. 18:37 Patient left the ED. hb Signatures: Dispatcher [employer] Clarice Bennett Corey, PA PA cp Baxter, Heather, RN Xenia Ponce [facility] Vadim Ramirez RN RN jd3
[2020-05-14 19:14] VITALS: TEMP 98.2
[2020-05-14 19:18] VITALS: BP 108/64; O2SAT 99
== END 2020-05-14 18:37 | disposition home or self-care (01) ==
LOC: ER 14:22
DX: N20.2 Calculus of kidney with calculus of ureter (principal); I10 Essential (primary) hypertension; E78.00 Pure hypercholesterolemia, unspecified; Z95.818 Presence of other cardiac implants and grafts; Z79.82 Long term (current) use of aspirin; Z88.2 Allergy status to sulfonamides; Z88.5 Allergy status to narcotic agent
CPT/HCPCS: 96365; 85025; 80048; 36415; 80076; 83690; 76377; 74176; 96375; 99284; J3010; J3475; J0696; J2405; 81003; 81015